=== PATIENT | female | born 1970 | race Caucasian/White ===

== ENCOUNTER 2022-11-07 22:27 | Inpatient (IN) | payer BC, SELFPAY ==
--- NOTE | ~2022-11-07 | XR_ITS ---
EXAMINATION: XR abdomen/kub 1V DATE: 11/09/2022 08:19 INDICATION: Small bowel obstruction. TECHNIQUE: A supine view of the abdomen was obtained. COMPARISON: CT abdomen and pelvis 11/07/2022 FINDINGS: There are dilated loops of small bowel. The colon is normal in caliber. There is a moderate volume of stool in the colon. There is an intrauterine device in expected position. IMPRESSION: 1. Persistently dilated small bowel, consistent with small bowel obstruction. Reviewed, dictated and finalized at location A.
--- NOTE | ~2022-11-07 | XR_ITS ---
EXAMINATION: XR_KUBGTUBINS_CR DATE: 11/08/2022 04:12 INDICATION: Nasogastric tube placement. TECHNIQUE: An upright view of the abdomen was obtained. COMPARISON: CT abdomen and pelvis 11/07/2022 FINDINGS: The lower abdomen is excluded. There are dilated loops of small bowel. The nasogastric tube tip is in the stomach. IMPRESSION: 1. Nasogastric tube tip in the stomach. 2. Dilated small bowel, consistent with small bowel obstruction. Reviewed, dictated and finalized at location A.
--- NOTE | ~2022-11-07 | XR_ITS ---
EXAMINATION: XR_KUBGTUBPOS_CR DATE: 11/08/2022 04:12 INDICATION: Nasogastric tube repositioning. TECHNIQUE: An upright view of the abdomen was obtained. COMPARISON: CT abdomen and pelvis 01/07/2023 FINDINGS: The lower abdomen is excluded. There are dilated loops of small bowel. The nasogastric tube tip is in the stomach. IMPRESSION: 1. Nasogastric tube tip in the stomach. 2. Dilated small bowel, consistent with small bowel obstruction. Reviewed, dictated and finalized at location A.
--- NOTE | ~2022-11-07 | CT_ITS ---
EXAMINATION: CT abdomen pelvis w con DATE: 11/08/2022 00:00 INDICATION: Acute cholecystitis. TECHNIQUE: Computed tomography (CT) of the abdomen and pelvis was performed with 100 mL Omnipaque 350 intravenous contrast. Automated exposure control and iterative reconstruction technique were employe d. The dose-length product was 317.60 mGy-cm. COMPARISON: None. FINDINGS: The visualized portions of the lung bases demonstrate mild atelectasis. No pleural effusion . The heart size is normal. No pericardial effusion. There is mild pectus excavatum. The liver, gallb ladder, spleen, pancreas, adrenal glands, and kidneys are normal. There are multiple dilated loops of small bowel. There are multiple transition points in right abdomen in close proximity, consistent wi th closed loop small bowel obstruction. The appendix is normal. There is an intrauterine device in ex pected position. There is a small volume of pelvic ascites. There is mild lumbar spondylosis. IMPRESSION: 1. Closed-loop small bowel obstruction. 2. Small volume of ascites. Reviewed, dictated and finalized at location A.
--- NOTE | ~2022-11-07 | XR_ITS ---
EXAMINATION: XR sm bowel follow through WS DATE: 11/08/2022 16:50 INDICATION: Small bowel obstruction with emesis and bloating TECHNIQUE: Lay Out Former radiograph(s) of the abdomen was/were obtained. Oral contrast was administered, and sequential radiographs of the abdomen were obtained through 3.5 hours. COMPARISON: CT abdomen and pelvis dated 11/07/2022 FINDINGS: Nasogastric tube tip in the body of the stomach on the shrinking machine operator image. T-shaped IUD projecting over the central pelvis with small amount of excreted contrast in the bladder related to the earlier contrast- enhanced CT. There is delayed gastric emptying with no contrast in the duodenum on the 1 hour image. There is only a small amount of contrast within the proximal most small bowel on the 3 1/2 hour image with the majority of contrast still within the stomach. Gas is seen within multiple loops of small b owel predominantly in the left abdomen which transiently appear only mildly dilated. IMPRESSION: 1. Significant delay progression of contrast which is reached only the proximal small bowel by 3 1/2 hours of imaging with transiently mildly dilated loops of more distal small bowel. This could be due to either partial small bowel obstruction and/or ileus. Reviewed, dictated and finalized at location A. IMPRESSION: 1. Significant delay progression of contrast which is reached only the proximal small bowel by 3 1/2 hours of imaging with transiently mildly dilated loops of more distal small bowel. This could be due to either partial small bowel obstr uction and/or ileus.
[2022-11-07 22:28] VITALS: BP 141/68; PULSE 65; RESP 14; TEMP 36.1; O2SAT 98
--- NOTE | 2022-11-07 23:08 | ED.ABDPAIN ---
HPI - Abdominal Pain General Chief Complaint: Abdominal Pain <VICENTE Valle Last Filed: 11/08/22 02:53> Stated Complaint: abd pain <VICENTE Valle Last Filed: 11/08/22 02:53> Time Seen by Provider: 11/07/22 22:43 <Raven Irwin PA-C - Last Filed: 11/08/22 02:53> History of Present Illness HPI narrative: 52-year-old female with a history of psoriatic arthritis reports for evaluation for left upper quadrant and right upper quadrant abdominal pain since 1500 today. She now states the abdominal pain is generalized and reports nausea and one episode of emesis upon arrival to the ED. States the pain is constant and describes it as an achy sensation, it radiates to her right flank. Last bowel movement this morning was normal. She denies chest pain or shortness of breath, fever, body aches or chills, melena or hematochezia, dysuria or hematuria, diarrhea. She does report a history of ureterolithiasis but states this does not feel the same. <VICENTE Valle Last Filed: 11/08/22 02:53> Related Data Home Medications: Home Medications Medication Instructions Recorded Confirmed cetirizine 10 mg tablet (Zyrtec) 10 mg PO DAILY 07/10/21 11/08/22 cholecalciferol (vitamin D3) 100 100 mcg PO DAILY 07/10/21 11/08/22 mcg (4,000 unit) tablet estradiol 1 mg tablet 0.5 mg PO DAILY 07/10/21 11/08/22 levonorgestrel 21 mcg/24 hours (8 1 device intrauterine ONCE 07/10/21 11/08/22 yrs) 52 mg intrauterine device (Mirena) multivitamin with minerals 1 tablet PO DAILY 07/10/21 11/08/22 <VICENTE Valle Last Filed: 11/08/22 02:53> Allergies/Adverse Reactions: Allergies Allergy/AdvReac Type Severity Reaction Status Date / Time doxycycline Allergy Intermediate Nausea and Verified 11/07/22 22:31 Vomiting SNR inhibitors Allergy Mild Nausea and Uncoded 11/07/22 22:31 Vomiting SSR inhibitors Allergy Mild Nausea and Uncoded 11/07/22 22:31 Vomiting <Raven Irwin PA-C - Last Filed: 11/08/22 02:53> Review of Systems Review of Systems: CONSTITUTIONAL: Denies fever, chills EYES: Denies visual changes, redness, or discharge. ENT: Denies rhinorrhea, congestion, sore throat, or otalgia. CARDIOVASCULAR: Denies chest pain, palpitations, or edema. RESPIRATORY: Denies cough or dyspnea. GASTROINTESTINAL: See HPI GENITOURINARY: Denies dysuria or hematuria. SKIN: Denies rash or itching. MUSCULOSKELETAL: See HPI NEUROLOGIC: Denies headache, numbness, dizziness, or weakness. PSYCHIATRIC: Denies anxiety or depression. <Raven Irwin PA-C - Last Filed: 11/08/22 02:53> [facility] Past Medical History Medical History: Medical History (Updated 11/08/22 @ 04:28 by Dereje Leal MD) Allergies Headache Hyperlipidemia Migraine Plantar fasciitis Psoriatic arthritis <Raven Irwin PA-C - Last Filed: 11/08/22 02:53> Surgical History Surgical History: Surgical History H/O cervical spinal arthrodesis Hx of tonsillectomy <Raven Irwin PA-C - Last Filed: 11/08/22 02:53> Family History Family History: Family History Father Cancer Hypertension Cerebrovascular accident Mother Diabetes mellitus Sibling Alcoholism Depression Anxiety Grandparent Cerebrovascular accident <Raven Irwin PA-C - Last Filed: 11/08/22 02:53> Social History Social History: Social History Years smoked: 15 Smoking status: Former smoker Tobacco type: cigarettes Alcohol intake: former Drinks per week: 2 Alcohol use details: 1-2 per month Substance use: never Lack of Transportation: No Lack of Food: Never True Current Housing: I Have Housing Concerned About Future Housing: No Difficulty Paying Gas/Electric Bills: No Difficulty Payi
[2022-11-07 23:36] LABS: Basophils Percent Auto 0.3 % (0.2-1.2); Eosinophils Absolute Auto 0.1 K/mm3 (0-0.3); Eosinophils Percent Auto 0.7 % (0-4.4); Hemoglobin 14.4 g/dL (12.0-15.0); Immature Granulocyte Absolute 0.02 K/mm3 (0.00-0.031); Immature Granulocyte Percent A 0.2 % (0-0.5); Lymphocytes Absolute Auto 1.49 K/mm3 (0.9-3.2); Lymphocytes Percent Auto 15.4 % (18.3-44.2); Mean Corpuscular HGB Conc 33.5 g/dl (32-36); Mean Corpuscular Volume 95.6 fl (80-100); Mean Platelet Volume 8.9 fl (7.4-10.4); Monocytes Absolute Auto 0.5 K/mm3 (0.1-0.6); Monocytes Percent Auto 5.6 % (2.6-8.5); Neutrophils Absolute Auto 7.5 K/mm3 (1.3-6.7); Neutrophils Percent Auto 77.8 % (45.5-73.1); Platelet Count Result 248 k/mm3 (150-375); Red Cell Distribution Width 11.7 % (11.5-14.5); White Blood Count 9.7 K/mm3 (4.5-10.0)
[2022-11-07] MEDS: MORPHINE SULFATE (*CRX) 4 MG/ML INJ IV PUSH (23:41)
[2022-11-07] MEDS: ONDANSETRON INJ 4 MG/2 ML VIAL IV PUSH (23:41)
[2022-11-07] MEDS: SODIUM CHLORIDE 0.9% IV 1,000 ML 999 ML IV CONT (23:42)
[2022-11-07 23:43] LABS: Appearance Urine Turbid (Clear); Bacteria Urine 4+ /hpf; Bilirubin Urine Negative (Negative); Blood Urine Negative (Negative); Color Urine Dark Yellow (Yellow); Glucose Urine UA Negative (Negative); Ketones Urine 3+ mg/dL (Negative); Leukocyte Esterase Ur Negative LEU/UL (Negative); Nitrate Urine Negative (Negative); Non Pathogenic Casts 0-2; Protein Urine Negative (Negative); RBC Urine 0-2 /hpf (0-2); Specific Grav Ur 1.028 (1.001-1.035); Squamous Epithelial Cell Urine Many /hpf (Few); Urobilinogen Urine 0.2 mg/dL (<2.0); WBC Urine 0-5 /hpf; pH Urine 5.5 (5.0-9.0)
[2022-11-07 23:48] LABS: Add Urine Microscopic? YES; Alanine Aminotransferase 23 U/L (6-35); Albumin Level 5.2 g/dL (3.5-5.1); Alkaline Phosphatase 33 U/L (38-126); Anion Gap 10 mmol/L (8-16); Aspartate Amino Transferase 38 U/L (14-36); Bilirubin,Total 0.5 mg/dL (0.2-1.3); Blood Urea Nitrogen 16 mg/dL (7-17); Carbon Dioxide 30 mmol/L (22-30); Chloride 96 mmol/L (98-107); Estimated CRCL calculation 72 ml/min; Estimated Glomerular Filt Rate > 60; Glucose 125 mg/dL (65-110); Lipase 45 U/L (23-300); Potassium 3.6 mmol/L (3.4-5.0); Sodium 136 mmol/L (137-145)
[2022-11-08 00:58] VITALS: BP 119/65; PULSE 74; RESP 19; O2SAT 91
[2022-11-08] MEDS: HYDROmorphone HCL INJ (*CRX) 1 MG/ML SYR 0.5 MG IV PUSH (01:07)
[2022-11-08] MEDS: SODIUM CHLORIDE 0.9% IV 1,000 ML 999 ML IV CONT (02:35)
[2022-11-08] MEDS: ONDANSETRON INJ 4 MG/2 ML VIAL IV PUSH ×3 (03:20→14:13)
[2022-11-08 03:22] VITALS: BP 108/57; PULSE 93; RESP 14; O2SAT 98
[2022-11-08] MEDS: HYDROmorphone HCL INJ (*CRX) 1 MG/ML SYR IV PUSH ×2 (03:29→08:53)
--- NOTE | 2022-11-08 04:24 | PM.IMHP ---
H&P: HPI History of Present Illness Date/Time: 11/08/22 04:24 Chief Complaint: Abdominal pain Narrative: This is a 52-year-old female with past medical history significant for allergies, dyslipidemia, migraine headaches, plantar fasciitis, psoriatic arthritis. Patient presents to the emergency room due to abdominal pain that started in the morning patient had a normal bowel movement and was able to to have Meals the day before has been in her usual state of health, patient has had nausea and vomiting tried [place] at home but with no relief, has been able to pass gas. Patient found to have small-bowel obstruction.. EXAMINATION: CT abdomen pelvis w con DATE: 11/08/2022 00:00 INDICATION: Acute cholecystitis. TECHNIQUE: Computed tomography (CT) of the abdomen and pelvis was performed with 100 mL Omnipaque 350 intravenous contrast. Automated exposure control and iterative reconstruction technique were employed. The dose-length product was 317.60 mGy-cm. COMPARISON: None. FINDINGS: The visualized portions of the lung bases demonstrate mild atelectasis. No pleural effusion. The heart size is normal. No pericardial effusion. There is mild pectus excavatum. The liver, gallbladder, spleen, pancreas, adrenal glands, and kidneys are normal. There are multiple dilated loops of small bowel. There are multiple transition points in right abdomen in close proximity, consistent with closed loop small bowel obstruction. The appendix is normal. There is an intrauterine device in expected position. There is a small volume of pelvic ascites. There is mild lumbar spondylosis. IMPRESSION: 1. Closed-loop small bowel obstruction. 2. Small volume of ascites. Review of Systems Review of Systems: Abdominal pain, nausea, vomiting Constitutional: Constitutional: Denies chills, Denies fatigue and Denies fever(s) Eyes: Eyes: Denies change in vision ENT: Denies dysphagia, Denies vertigo, Denies dizziness and Denies odynophagia Cardiovascular: Cardiovascular: Denies chest pain Respiratory: Respiratory: Denies cough, Denies excessive phlegm production and Denies dyspnea Gastrointestinal: Gastrointestinal: Reports abdominal pain, Denies melena, Denies hematochezia, Denies change in bowel habits, Denies coffee ground emesis, Denies dyspepsia, Denies heartburn, Denies diarrhea, Reports nausea and Denies hematemesis Genitourinary: Genitourinary: Denies dysuria Musculoskeletal: Musculoskeletal: Denies back pain Integumentary/Breasts: Skin/Breast: Denies rash Neurologic: Denies focal weakness and Denies Sensory deficit (Neuro) Psychiatric: Psychiatric: Reports no additional psychiatric complaints and Reports as per HPI Endocrine: Endocrine: Denies cold intolerance, Denies flushing, Denies heat intolerance, Denies polyphagia, Denies polydipsia and Denies palpitations Hematologic/Lymphatic: Hematologic/Lymphatic: Reports no additional hematologic/lymphatic complaints and Reports as per HPI Allergic/Immunologic: Allergic/Immunologic: Reports no additional allergic/immunologic complaints and Reports as per HPI PMFSH Past Medical History Medical History Allergies Headache Hyperlipidemia Migraine Plantar fasciitis Psoriatic arthritis Surgical History Surgical History H/O cervical spinal arthrodesis Hx of tonsillectomy Family History Family History Father Cancer Hypertension Cerebrovascular accident Mother Diabetes mellitus Sibling Alcoholism Depression Anxiety Grandparent Cerebrovascular accident Social History Social History Years smoked: 15 Smoking status: Former smoker Tobacco type: cigarettes Alcohol intake: former Drinks per week: 2 Alcohol use details: 1-2 per month Substance use: never L
[2022-11-08 05:04] VITALS: BP 102/55; PULSE 58; RESP 15; O2SAT 98
--- NOTE | 2022-11-08 05:22 | ADMGEN ---
This patient, Mely Jacobsen, was admitted to [facility] Surg Room 330-02. Patient/family oriented to hospital policies and general routines including ID bracelet, bed and alarms, visiting hours, pain management, procedures, bathroom and other care routines, personal items, smoking policy, room service/diet, and visiting hours. Information on how to activate the Rapid Response Team has been discussed. Patient/Family are encouraged to report perceived risks to care and to ask questions if they do not understand what they are told or what they should do.
[2022-11-08] MEDS: SODIUM CHLORIDE 0.9% IV 1,000 ML 125 ML IV CONT ×3 (05:37→22:37)
[2022-11-08 06:00] VITALS: BP 115/65; PULSE 61; RESP 18; TEMP 36.6; O2SAT 100
[2022-11-08 06:05] VITALS: BMI 25.0
--- NOTE | 2022-11-08 10:50 | PM.IMPN ---
Progress Note: A&P Assessment and Plan (1) SBO (small bowel obstruction): Code(s): K56.609 - Unspecified intestinal obstruction, unspecified as to partial versus complete obstruction Status: Acute Assessment and Plan: Admit to regular medical floor, NPO, NG to low intermittent suction, SBFT pending Surgery consult pending, supportive care (2) Psoriatic arthritis: Code(s): L40.50 - Arthropathic psoriasis, unspecified Status: Acute Assessment and Plan: In remission (3) Hormone replacement therapy (HRT): Code(s): Z79.890 - Hormone replacement therapy Status: Acute Assessment and Plan: Follow-up in the outpatient setting (4) Migraine: Code(s): G43.909 - Migraine, unspecified, not intractable, without status migrainosus Status: Acute Assessment and Plan: No headache currently Plan DVT prophylaxis with SCDs GI prophylaxis not indicated Code status full code Subjective Date/time seen: 11/08/22 10:50 Interval history: 52-year-old female with past medical history significant for allergies, dyslipidemia, migraine headaches, plantar fasciitis, psoriatic arthritis presenting with abdominal pain. No overnight events noted. No chest pain or shortness of breath. Very nauseated and uncomfortable, c/o intermittent abdominal pain. No fevers or chills. Review of Systems Review of Systems: 12 point review of systems was assessed and was negative except as noted in the HPI Exam Narrative: General: Alert and oriented per baseline, appears uncomfortable HEENT: Atraumatic, normocephalic, mucous membranes moist CV: Regular rate and rhythm, S1, S2 Lungs: Clear to auscultation bilaterally, no rales or crackles noted, no wheezes, good air entry Abdomen: Soft, ttp, non distended Extremities: Normal to inspection Skin: No rashes noted, no lesions or wounds seen Psych: Uncomfortable Objective Data Vital Signs Vital Signs: Vital Signs - 24 hr 11/07/22 22:28 11/08/22 00:58 11/08/22 03:22 Temperature 97.0 F L Pulse Rate 65 74 93 Respiratory Rate 14 19 14 Blood Pressure 141/68 H 119/65 108/57 L Pulse Oximetry 98 91 98 Oxygen Delivery Room Air 11/08/22 05:04 11/08/22 06:00 11/08/22 05:23 Temperature 97.8 F Pulse Rate 58 L 61 Respiratory Rate 15 18 Blood Pressure 102/55 L 115/65 Pulse Oximetry 98 100 Oxygen Delivery Room Air Intake/Output Intake/Output: Intake & Output 11/05/22 11/06/22 11/07/22 11/08/22 23:59 23:59 23:59 23:59 Intake Total 1000 Output Total 5 Balance 995 Meds/Results Medications: Active Medications Generic Name Dose Route Start Last Admin Trade Name Freq PRN Reason Stop Dose Admin Hydromorphone HCl 1 mg 11/08/22 02:52 11/08/22 08:53 Hydromorphone Hcl Inj (*Crx) 1 Mg/Ml Syr IV PUSH 1 mg Q4H PRN Administration Pain Rated 7-10 Sodium Chloride 1,000 mls @ 125 mls/hr 11/08/22 02:55 11/08/22 05:37 Normal Saline Iv IV CONT 125 mls/hr .Q8H NICOLE Administration Ondansetron HCl 4 mg 11/08/22 02:52 11/08/22 08:53 Ondansetron Inj 4 Mg/2 Ml Vial IV PUSH 4 mg Q4H PRN Administration Nausea Radiology Results: ITS Impressions Abdomen X-Ray 11/08/22 06:11 IMPRESSION: 1. Nasogastric tube tip in the stomach. 2. Dilated small bowel, consistent with small bowel obstruction. Abdomen/Pelvis CT 11/08/22 06:38 IMPRESSION: 1. Closed-loop small bowel obstruction. 2. Small volume of ascites. Labs Labs: Laboratory Results - last 24 hr 11/07/22 23:28 WBC 9.7 RBC 4.50 Hgb 14.4 Hct 43.0 MCV 95.6 MCH 32.0 MCHC 33.5 RDW 11.7 Plt Count 248 MPV 8.9 Immature Gran % (Auto) 0.2 Neut % (Auto) 77.8 H Lymph % (Auto) 15.4 L [place] % (Auto) 5.6 Eos % (Auto) 0.7 Baso % (Auto) 0.3 Lymph # (Auto) 1.49 [place] # (Auto) 0.5 Eos # (Auto) 0.1 Baso # (Auto) 0.0 Abs Immat Gran (auto) 0.02 A
--- NOTE | 2022-11-08 11:15 | PM.CNGS ---
Assessment and Plan Assessment and plan (1) SBO (small bowel obstruction): Code(s): K56.609 - Unspecified intestinal obstruction, unspecified as to partial versus complete obstruction Status: Acute Assessment and Plan: suggestion of closed loop on CT, reviewed c radiologist, exam largely benign, labs ok cont NG decompression and bowel rest, will get SBS for further evaluation History of Present Illness Consult details Consult date: 11/08/22 Reason for consult: abdominal pain Requesting physician: Dereje Leal MD Narrative: The patient is a 52-year-old female presenting to the emergency department complaining of upper abdominal pain, bloating, nausea and vomiting. The patient reports that the pain started Tuesday and has been progressively worsening. She describes the pain intermittent and cramping, most severe in the right upper quadrant. The patient also reports poor appetite since episode started. The patient reports normal bowel movement on Tuesday morning. The patient reports she has been passing flatus. The patient reports her only abdominal surgery was a previous . Review of Systems Review of Systems: All systems reviewed & are unremarkable except as noted in HPI and below PMFSH Past Medical History Medical History Allergies Headache Hyperlipidemia Migraine Plantar fasciitis Psoriatic arthritis Surgical History Surgical History H/O cervical spinal arthrodesis Hx of tonsillectomy Family History Family History Father Cancer Hypertension Cerebrovascular accident Mother Diabetes mellitus Sibling Alcoholism Depression Anxiety Grandparent Cerebrovascular accident Social History Social History Years smoked: 15 Smoking status: Former smoker Tobacco type: cigarettes Alcohol intake: former Drinks per week: 2 Alcohol use details: 1-2 per month Substance use: never Lack of Transportation: No Lack of Food: Never True Current Housing: I Have Housing Concerned About Future Housing: No Difficulty Paying Gas/Electric Bills: No Difficulty Paying for Meds: No Currently Unemployed: No Education: Bachelor's Degree Difficulty w/ Childcare or Family Care: No Living arrangements: with family Occupation/Education: occupation 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 Spiritual care concerns: No Agree to blood products: Yes Meds Home Medications and Allergies Home Medications Medication Instructions Recorded Confirmed Type cetirizine 10 mg tablet (Zyrtec) 10 mg PO DAILY 07/10/21 11/08/22 History cholecalciferol (vitamin D3) 100 100 mcg PO DAILY 07/10/21 11/08/22 History mcg (4,000 unit) tablet estradiol 1 mg tablet 0.5 mg PO DAILY 07/10/21 11/08/22 History levonorgestrel 21 mcg/24 hours (8 1 device intrauterine ONCE 07/10/21 11/08/22 History yrs) 52 mg intrauterine device (Mirena) multivitamin with minerals 1 tablet PO DAILY 07/10/21 11/08/22 History Allergies Allergy/AdvReac Type Severity Reaction Status Date / Time doxycycline Allergy Intermediate Nausea and Verified 11/07/22 22:31 Vomiting SNR inhibitors Allergy Mild Nausea and Uncoded 11/07/22 22:31 Vomiting SSR inhibitors Allergy Mild Nausea and Uncoded 11/07/22 22:31 Vomiting Vital Signs Vital Signs - 24 hr 11/07/22 22:28 11/08/22 00:58 11/08/22 03:22 Temperature 36.1 C L Pulse Rate 65 74 93 Respiratory Rate 14 19 14 Blood Pressure 141/68 H 119/65 108/57 L Pulse Oximetry 98 91 98 Oxygen Delivery Room Air 11/08/22 05:04 11/08/22 06:00 11/08/22 05:23 Temperature 36.6 C Pulse Rate 58 L 61 Respiratory Rate 15 18 Blood Pressure 102/55 L 115/65 Pulse Oximetry 98 100 Oxygen Delivery Room Air
[2022-11-08 14:40] VITALS: BP 131/69; PULSE 65; RESP 16; TEMP 36.4; O2SAT 100
[2022-11-08] MEDS: PROMETHAZINE HCL 25 MG/ML AMPUL 12.5 MG IV PUSH ×2 (16:13→20:57)
[2022-11-08 21:38] VITALS: BP 132/64; PULSE 76; RESP 14; TEMP 37.2; O2SAT 100
[2022-11-09] VITALS (13 sets, daily range): BP systolic 107–138; BP diastolic 46–82; PULSE 59–92; RESP 12–18; TEMP 36.2–36.9; O2SAT 95–100
[2022-11-09] MEDS: PROMETHAZINE HCL 25 MG/ML AMPUL 12.5 MG IV PUSH ×2 (02:54→09:41)
[2022-11-09 06:31] LABS: Basophils Percent Auto 0.1 % (0.2-1.2); Eosinophils Percent Auto 0.1 % (0-4.4); Hematocrit 39.6 % (37.0-47.0); Hemoglobin 13.1 g/dL (12.0-15.0); Immature Granulocyte Absolute 0.03 K/mm3 (0.00-0.031); Immature Granulocyte Percent A 0.4 % (0-0.5); Lymphocytes Absolute Auto 1.21 K/mm3 (0.9-3.2); Lymphocytes Percent Auto 14.2 % (18.3-44.2); Mean Corpuscular HGB Conc 33.1 g/dl (32-36); Mean Corpuscular Hemoglobin 31.9 pg (26-34); Mean Corpuscular Volume 96.4 fl (80-100); Mean Platelet Volume 8.7 fl (7.4-10.4); Monocytes Absolute Auto 0.7 K/mm3 (0.1-0.6); Monocytes Percent Auto 7.7 % (2.6-8.5); Neutrophils Absolute Auto 6.6 K/mm3 (1.3-6.7); Neutrophils Percent Auto 77.5 % (45.5-73.1); Platelet Count Result 216 k/mm3 (150-375); Red Blood Count 4.11 M/mm3 (4.2-5.4); Red Cell Distribution Width 11.8 % (11.5-14.5); White Blood Count 8.5 K/mm3 (4.5-10.0)
[2022-11-09 06:42] LABS: Alanine Aminotransferase 13 U/L (6-35); Albumin Level 3.4 g/dL (3.5-5.1); Alkaline Phosphatase 22 U/L (38-126); Anion Gap 4 mmol/L (8-16); Aspartate Amino Transferase 20 U/L (14-36); Bilirubin,Total 0.4 mg/dL (0.2-1.3); Blood Urea Nitrogen 13 mg/dL (7-17); Calcium 7.7 mg/dL (8.4-10.2); Carbon Dioxide 24 mmol/L (22-30); Chloride 105 mmol/L (98-107); Estimated CRCL calculation 72 ml/min; Estimated Glomerular Filt Rate > 60; Glucose 102 mg/dL (65-110); Potassium 3.7 mmol/L (3.4-5.0); Sodium 133 mmol/L (137-145)
--- NOTE | 2022-11-09 09:56 | PM.PNGS ---
Progress Note: A&P Assessment and Plan (1) SBO (small bowel obstruction): Code(s): K56.609 - Unspecified intestinal obstruction, unspecified as to partial versus complete obstruction Status: Acute Assessment and Plan: no improvement c conservative measures, SBS reviewed, will proceed to OR for ex lap Subjective Subjective Date/Time Seen: 11/09/22 09:56 Interval history: still c cramping pain and nausea, some minimal flatus, no bowel fxn Review of Systems Review of Systems: All systems reviewed & are unremarkable except as noted in HPI and below Exam Const: General: cooperative, no acute distress and uncomfortable Resp: Auscultation: clear to auscultation bilaterally Cardio: Rate: regular rate Rhythm: regular rhythm GI: Inspection: normal to inspection and distended GI Palp: Yes abdominal tenderness, Yes Soft to palpation, Yes Tenderness to palpation present (GI), No Guarding due to palpation present (GI) and No Rigid due to palpation Objective Data Vital Signs Vital Signs: Vital Signs - 24 hr 11/08/22 14:40 11/08/22 20:00 11/08/22 21:38 Temperature 36.4 C L 37.2 C Pulse Rate 65 76 Respiratory Rate 16 14 Blood Pressure 131/69 132/64 Pulse Oximetry 100 100 Oxygen Delivery Room Air 11/09/22 06:00 Temperature 36.2 C L Pulse Rate 77 Respiratory Rate 16 Blood Pressure 128/71 Pulse Oximetry 98 Oxygen Delivery Intake/Output Intake/Output: Intake & Output 11/06/22 11/07/22 11/08/22 11/09/22 23:59 23:59 23:59 23:59 Intake Total 3000 Output Total 605 Balance 2395 Meds/Results Medications: Active Medications Generic Name Dose Route Start Last Admin Trade Name Freq PRN Reason Stop Dose Admin Estradiol 0.5 mg 11/09/22 09:00 11/09/22 09:40 Estradiol 0.5 Mg Tablet PO Not Given DAILY NICOLE Fentanyl Citrate 25 mcg 11/08/22 15:52 Fentanyl Citrate Inj (*Crx) 100 Mcg/2 Ml Vial IV PUSH Q4H PRN Pain Rated 7-10 Sodium Chloride 1,000 mls @ 125 mls/hr 11/08/22 02:55 11/08/22 22:37 Normal Saline Iv IV CONT 125 mls/hr .Q8H NICOLE Administration Loratadine 10 mg 11/08/22 12:00 11/09/22 09:23 Loratadine 10 Mg Tablet PO Not Given DAILY [facility] Multivitamins/Calcium 1 tablet 11/09/22 09:00 11/09/22 09:23 Therapeutic Multivitamins/Minerals Tab (*Bkc) PO Not Given DAILY NICOLE Promethazine HCl 12.5 mg 11/08/22 15:52 11/09/22 09:41 Promethazine Hcl 25 Mg/Ml Ampul IV PUSH 12.5 mg Q4H PRN Administration Nausea And Vomiting Vitamin D 4,000 units 11/09/22 09:00 11/09/22 09:23 Cholecalciferol 1,000 Units Tablet PO Not Given DAILY [facility] Radiology Results: ITS Impressions Abdomen/Pelvis CT 11/08/22 06:38 IMPRESSION: 1. Closed-loop small bowel obstruction. 2. Small volume of ascites. ADDENDUM: 11/08/22 1116 I discussed the bowel obstruction with Dr. Paz. Small Bowel X-Ray 11/08/22 17:02 IMPRESSION: 1. Significant delay progression of contrast which is reached only the proximal small bowel by 3 1/2 hours of imaging with transiently mildly dilated loops of more distal small bowel. This could be due to either partial small bowel obstruction and/or ileus. Abdomen X-Ray 11/09/22 08:28 IMPRESSION: 1. Persistently dilated small bowel, consistent with small bowel obstruction. Labs Labs: Laboratory Results - last 24 hr 11/09/22 06:12 WBC 8.5 RBC 4.11 L Hgb 13.1 Hct 39.6 MCV 96.4 MCH 31.9 MCHC 33.1 RDW 11.8 Plt Count 216 MPV 8.7 Immature Gran % (Auto) 0.4 Neut % (Auto) 77.5 H Lymph % (Auto) 14.2 L [place] % (Auto) 7.7 Eos % (Auto) 0.1 Baso % (Auto) 0.1 L Lymph # (Auto) 1.21 [place] # (Auto) 0.7 H Eos # (Auto) 0.0 Baso # (Auto) 0.0 Abs Immat Gran (auto) 0.03 Absolute Neuts (auto) 6.6 Absolute Nucleated RBC 0.0 Nucleated RBC % 0.0 Sodium 133 L Potassium 3.7 Chloride 105 Carbon Dioxide 24 Anion Gap 4 L BUN 13 Creatinine
--- NOTE | 2022-11-09 09:57 | WPDHPUPDATE1 ---
History and Physical Update Update Date/Time: 11/09/22 09:57 History and Physical has been reviewed, including an updated exam of the patient. There are NO changes in the patient's condition. Risks, benefits, and alternatives have been discussed and questions answered. Patient agrees to proceed with procedure.
[2022-11-09] MEDS: SODIUM CHLORIDE 0.9% IV 1,000 ML 125 ML IV CONT (11:10)
--- NOTE | 2022-11-09 11:29 | PM.IMPN ---
Progress Note: A&P Assessment and Plan (1) SBO (small bowel obstruction): Code(s): K56.609 - Unspecified intestinal obstruction, unspecified as to partial versus complete obstruction Status: Acute Assessment and Plan: Admit to regular medical floor, NPO, NG to low intermittent suction, SBFT showed obstruction Surgery consult appreciated, OR 11/09 for exlap (2) Psoriatic arthritis: Code(s): L40.50 - Arthropathic psoriasis, unspecified Status: Acute Assessment and Plan: In remission (3) Hormone replacement therapy (HRT): Code(s): Z79.890 - Hormone replacement therapy Status: Acute Assessment and Plan: Follow-up in the outpatient setting (4) Migraine: Code(s): G43.909 - Migraine, unspecified, not intractable, without status migrainosus Status: Acute Assessment and Plan: No headache currently Plan DVT prophylaxis with SCDs GI prophylaxis not indicated Code status full code Subjective Date/time seen: 11/09/22 11:29 Interval history: 52-year-old female with past medical history significant for allergies, dyslipidemia, migraine headaches, plantar fasciitis, psoriatic arthritis presenting with abdominal pain. In OR Review of Systems Review of Systems: 12 point review of systems was assessed and was negative except as noted in the HPI Exam Narrative: In OR Objective Data Vital Signs Vital Signs: Vital Signs - 24 hr 11/08/22 14:40 11/08/22 20:00 11/08/22 21:38 Temperature 97.5 F L 98.9 F Pulse Rate 65 76 Respiratory Rate 16 14 Blood Pressure 131/69 132/64 Pulse Oximetry 100 100 Oxygen Delivery Room Air 11/09/22 06:00 11/09/22 08:00 Temperature 97.1 F L Pulse Rate 77 Respiratory Rate 16 Blood Pressure 128/71 Pulse Oximetry 98 Oxygen Delivery Room Air Intake/Output Intake/Output: Intake & Output 11/06/22 11/07/22 11/08/22 11/09/22 23:59 23:59 23:59 23:59 Intake Total 3000 1000 Output Total 605 Balance 2395 1000 Meds/Results Medications: Active Medications Generic Name Dose Route Start Last Admin Trade Name Freq PRN Reason Stop Dose Admin Estradiol 0.5 mg 11/09/22 09:00 11/09/22 09:40 Estradiol 0.5 Mg Tablet PO Not Given DAILY NICOLE Fentanyl Citrate 25 mcg 11/08/22 15:52 Fentanyl Citrate Inj (*Crx) 100 Mcg/2 Ml Vial IV PUSH Q4H PRN Pain Rated 7-10 Sodium Chloride 1,000 mls @ 125 mls/hr 11/08/22 02:55 11/09/22 11:10 Normal Saline Iv IV CONT 125 mls/hr .Q8H NICOLE Administration Loratadine 10 mg 11/08/22 12:00 11/09/22 09:23 Loratadine 10 Mg Tablet PO Not Given DAILY [facility] Multivitamins/Calcium 1 tablet 11/09/22 09:00 11/09/22 09:23 Therapeutic Multivitamins/Minerals Tab (*Bkc) PO Not Given DAILY [facility] Promethazine HCl 12.5 mg 11/08/22 15:52 11/09/22 09:41 Promethazine Hcl 25 Mg/Ml Ampul IV PUSH 12.5 mg Q4H PRN Administration Nausea And Vomiting Vitamin D 4,000 units 11/09/22 09:00 11/09/22 09:23 Cholecalciferol 1,000 Units Tablet PO Not Given DAILY [facility] Radiology Results: ITS Impressions Abdomen/Pelvis CT 11/08/22 06:38 IMPRESSION: 1. Closed-loop small bowel obstruction. 2. Small volume of ascites. ADDENDUM: 11/08/22 1116 I discussed the bowel obstruction with Dr. Paz. Small Bowel X-Ray 11/08/22 17:02 IMPRESSION: 1. Significant delay progression of contrast which is reached only the proximal small bowel by 3 1/2 hours of imaging with transiently mildly dilated loops of more distal small bowel. This could be due to either partial small bowel obstruction and/or ileus. Abdomen X-Ray 11/09/22 08:28 IMPRESSION: 1. Persistently dilated small bowel, consistent with small bowel obstruction. Labs Labs: Laboratory Results - last 24 hr 11/09/22 06:12 WBC 8.5 RBC 4.11 L Hgb 13.1 Hct 39.6 MCV 96.4 MCH 31.9 MCHC 3
--- NOTE | 2022-11-09 12:11 | PC.NURSE ---
Pt is off the unit, just went down for surgery.
[2022-11-09] MEDS: LACTATED RINGERS 1,000 ML 30 ML IV CONT ×2 (12:20→14:49)
--- NOTE | 2022-11-09 12:22 | WPDANESEPPF ---
Anes - Initial Pre Proc Eval Procedure: Operation Date: 11/09/22 15:00 Proposed Procedures p Exploratory Laparotomy, Possible Bowel Resection - Magda Paz MD Date/Time: 11/09/22 12:22 Surgeon: Dereje Leal MD Pre Op Diagnosis: SBO Patient Data Age: 52 Gender: F Height: 1.57 m Weight: 62.1 kg Last Vital Signs Temp 36.2 C L 11/09/22 06:00 Pulse 77 11/09/22 06:00 Resp 16 11/09/22 06:00 BP 128/71 11/09/22 06:00 Pulse Ox 98 11/09/22 06:00 O2 Del Method Room Air 11/09/22 08:00 Allergies Allergy/AdvReac Type Severity Reaction Status Date / Time doxycycline Allergy Intermediate Nausea and Verified 11/07/22 22:31 Vomiting SNR inhibitors Allergy Mild Nausea and Uncoded 11/07/22 22:31 Vomiting SSR inhibitors Allergy Mild Nausea and Uncoded 11/07/22 22:31 Vomiting Home Medications Medication Instructions Recorded Confirmed Type cetirizine 10 mg tablet (Zyrtec) 10 mg PO DAILY 07/10/21 11/08/22 History cholecalciferol (vitamin D3) 100 100 mcg PO DAILY 07/10/21 11/08/22 History mcg (4,000 unit) tablet estradiol 1 mg tablet 0.5 mg PO DAILY 07/10/21 11/08/22 History levonorgestrel 21 mcg/24 hours (8 1 device intrauterine ONCE 07/10/21 11/08/22 History yrs) 52 mg intrauterine device (Mirena) multivitamin with minerals 1 tablet PO DAILY 07/10/21 11/08/22 History Laboratory Tests 11/09/22 06:12 WBC 8.5 K/mm3 (4.5-10.0) RBC 4.11 L M/mm3 (4.2-5.4) Hgb 13.1 g/dL (12.0-15.0) Hct 39.6 % (37.0-47.0) MCV 96.4 fl (80-100) MCH 31.9 pg (26-34) MCHC 33.1 g/dl (32-36) RDW 11.8 % (11.5-14.5) Plt Count 216 k/mm3 (150-375) MPV 8.7 fl (7.4-10.4) Immature Gran % (Auto) 0.4 % (0-0.5) Neut % (Auto) 77.5 H % (45.5-73.1) Lymph % (Auto) 14.2 L % (18.3-44.2) Sandoval % (Auto) 7.7 % (2.6-8.5) Eos % (Auto) 0.1 % (0-4.4) Baso % (Auto) 0.1 L % (0.2-1.2) Lymph # (Auto) 1.21 K/mm3 (0.9-3.2) Sandoval # (Auto) 0.7 H K/mm3 (0.1-0.6) Eos # (Auto) 0.0 K/mm3 (0-0.3) Baso # (Auto) 0.0 K/mm3 (0.0-0.1) Abs Immat Gran (auto) 0.03 K/mm3 (0.00-0.031) Absolute Neuts (auto) 6.6 K/mm3 (1.3-6.7) Absolute Nucleated RBC 0.0 K/mm3 (0.0-0.012) Nucleated RBC % 0.0 % (0.0-0.2) Sodium 133 L mmol/L (137-145) Potassium 3.7 mmol/L (3.4-5.0) Chloride 105 mmol/L (98-107) Carbon Dioxide 24 mmol/L (22-30) Anion Gap 4 L mmol/L (8-16) BUN 13 mg/dL (7-17) Creatinine 0.60 L mg/dL (0.7-1.0) Estim Creat Clear Calc 72 ml/min Estimated GFR > 60 (59 - ) Glucose 102 mg/dL (65-110) Calcium 7.7 L mg/dL (8.4-10.2) Total Bilirubin 0.4 mg/dL (0.2-1.3) AST 20 U/L (14-36) ALT 13 U/L (6-35) Alkaline Phosphatase 22 L U/L (38-126) Total Protein 6.0 L g/dL (6.3-8.2) Albumin 3.4 L g/dL (3.5-5.1) Patient hx anesthesia problems: none Family hx anesthesia problems: none Results Review: All pre-operative results and documents have been reviewed as part of the pre-operative evaluation. [facility] Past Medical History Medical History Allergies Headache Hyperlipidemia Migraine Plantar fasciitis Psoriatic arthritis Surgical History Surgical History H/O cervical spinal arthrodesis Hx of tonsillectomy Family History Family History Father Cancer Hypertension Cerebrovascular accident Mother Diabetes mellitus Sibling Alcoholism Depression Anxiety Grandparent Cerebrovascular accident Social History Social History Years smoked: 15 Smoking status: Former smoker Tobacco type: cigarettes Alcohol intake: former Drinks per week: 2 Alcohol
[2022-11-09] MEDS: ceFAZolin 2 GM/D5W 50 ML 2 GM/50 ML BAG IVPB ×2 (13:40→21:32)
--- NOTE | 2022-11-09 14:46 | W.PM.PROC2 ---
Procedure Note - Detailed Date of Procedure 11/09/22 Pre-op Diagnosis SBO Post-op Diagnosis Same Procedure Performed Exploratory laparotomy, small-bowel resection Surgeon Magda Paz MD Anesthesia General Indications 52-year-old female presenting to the emergency department complaining severe abdominal pain. Workup was significant for small bowel obstruction. Findings Closed loop small bowel obstruction secondary to internal hernia with noted ischemia of herniated bowel Description of Procedure The patient was taken the operating room and placed in the supine position. After adequate induction of general anesthesia, the patient was prepped and draped in the normal sterile fashion. An upper midline incision was used to gain access into the abdominal cavity. Upon getting into the peritoneal cavity, a large amount of ascitic fluid was noted. Approximately 400-500 mL of serous fluid was evacuated from the abdomen. I then began to run the small intestine, this was noted to be dilated proximally while the distal bowel was noted to be decompressed. In the mid jejunum there was noted to be a loop of small intestine that had twisted around the mesentery causing a closed loop small bowel obstruction. This bowel was noted to be dilated, inflamed, and ischemic. I was able to reduce the hernia at this point. Of note there was really no adhesions noted. I then ran the bowel proximally all the way to the ligament of Treitz. Distally the small bowel was noted to be decompressed and normal. The area of the previously herniated bowel continued to be very dusky appearing. I then made the decision to resect this area. This was done with a ROSE MARY 75 stapler loads both distally and proximally to the area of ischemia. I then took down the mesenteric attachments using the LigaSure device. Then completed a [id number] functional end-to-end anastomosis using the ROSE MARY 75 stapler followed by a TX 60 stapler. The mesenteric defect was closed with a running 3-0 silk suture. The anastomosis was noted to be widely patent and tension-free. I then imbricated the staple line using interrupted 3-0 silk sutures. I then copiously irrigated the abdominal cavity. No other pathology was noted. I then closed the fascia of our incision using a looped 0 PDS suture. The subcutaneous tissue was closed with 3-0 Vicryl suture. The skin was closed with 4-0 Monocryl subcuticular suture. Dermabond was placed on the wound. The patient tolerated the procedure well and was extubated postoperatively. She will be transferred to the recovery room in stable condition. Estimated Blood Loss 20 Urine Output 600 Drains No Packing No Pathology Yes Complications No immediate complications Condition Stable Disposition PACU [facility] Billing Surgery - Charge Forward: Surgery Billing
[2022-11-09] MEDS: HYDROmorphone HCL INJ (*CRX) 1 MG/ML SYR 0.5 MG IV PUSH ×2 (15:33→15:45)
[2022-11-09] MEDS: fentaNYL CITRATE INJ (*CRX) 100 MCG/2 ML VIAL 25 MCG IV PUSH (16:44)
[2022-11-09] MEDS: HYDROmorphone HCL INJ (*CRX) 1 MG/ML SYR IV PUSH (22:09)
[2022-11-10] VITALS (8 sets, daily range): BP systolic 96–138; BP diastolic 47–74; PULSE 79–95; RESP 14–16; TEMP 36.1–37.4; O2SAT 95–99
[2022-11-10] MEDS: SODIUM CHLORIDE 0.9% IV 1,000 ML 125 ML IV CONT ×2 (01:29→09:11)
[2022-11-10] MEDS: HYDROmorphone HCL INJ (*CRX) 1 MG/ML SYR IV PUSH ×3 (05:45→21:50)
[2022-11-10] MEDS: ceFAZolin 2 GM/D5W 50 ML 2 GM/50 ML BAG IVPB ×2 (05:46→15:24)
[2022-11-10 06:53] LABS: Basophils Percent Auto 0.4 % (0.2-1.2); Hematocrit 37.2 % (37.0-47.0); Hemoglobin 12.3 g/dL (12.0-15.0); Immature Granulocyte Absolute 0.05 K/mm3 (0.00-0.031); Immature Granulocyte Percent A 0.7 % (0-0.5); Lymphocytes Absolute Auto 0.96 K/mm3 (0.9-3.2); Lymphocytes Percent Auto 13.7 % (18.3-44.2); Mean Corpuscular HGB Conc 33.1 g/dl (32-36); Mean Corpuscular Hemoglobin 32.6 pg (26-34); Mean Corpuscular Volume 98.7 fl (80-100); Mean Platelet Volume 8.7 fl (7.4-10.4); Monocytes Absolute Auto 0.7 K/mm3 (0.1-0.6); Monocytes Percent Auto 9.5 % (2.6-8.5); Neutrophils Absolute Auto 5.3 K/mm3 (1.3-6.7); Neutrophils Percent Auto 75.7 % (45.5-73.1); Platelet Count Result 182 k/mm3 (150-375); Red Blood Count 3.77 M/mm3 (4.2-5.4); Red Cell Distribution Width 12.1 % (11.5-14.5)
[2022-11-10 07:01] LABS: Alanine Aminotransferase 11 U/L (6-35); Albumin Level 3.2 g/dL (3.5-5.1); Alkaline Phosphatase 20 U/L (38-126); Anion Gap 8 mmol/L (8-16); Aspartate Amino Transferase 20 U/L (14-36); Bilirubin,Total 0.3 mg/dL (0.2-1.3); Blood Urea Nitrogen 12 mg/dL (7-17); Calcium 7.1 mg/dL (8.4-10.2); Carbon Dioxide 23 mmol/L (22-30); Chloride 106 mmol/L (98-107); Estimated CRCL calculation 72 ml/min; Estimated Glomerular Filt Rate > 60; Glucose 96 mg/dL (65-110); Potassium 3.6 mmol/L (3.4-5.0); Sodium 137 mmol/L (137-145)
--- NOTE | 2022-11-10 07:37 | PM.IMPN ---
Progress Note: A&P Assessment and Plan (1) SBO (small bowel obstruction): Code(s): K56.609 - Unspecified intestinal obstruction, unspecified as to partial versus complete obstruction Status: Acute Assessment and Plan: Admit to regular medical floor, NPO, NG to low intermittent suction, SBFT showed obstruction Surgery consult appreciated, OR 11/09 for exlap 16: POD#1 exlap for SBO, postop care per surgery team (2) Psoriatic arthritis: Code(s): L40.50 - Arthropathic psoriasis, unspecified Status: Acute Assessment and Plan: In remission (3) Hormone replacement therapy (HRT): Code(s): Z79.890 - Hormone replacement therapy Status: Acute Assessment and Plan: Follow-up in the outpatient setting (4) Migraine: Code(s): G43.909 - Migraine, unspecified, not intractable, without status migrainosus Status: Acute Assessment and Plan: No headache currently Plan DVT prophylaxis with SCDs GI prophylaxis not indicated Code status full code Subjective Date/time seen: 11/10/22 07:37 Interval history: 52-year-old female with past medical history significant for allergies, dyslipidemia, migraine headaches, plantar fasciitis, psoriatic arthritis presenting with abdominal pain. No overnight events noted. No chest pain or shortness of breath. No nausea, vomiting or diarrhea. No fevers or chills. Doing well postoperatively, feels much better. Review of Systems Review of Systems: 12 point review of systems was assessed and was negative except as noted in the HPI Exam Narrative: General: No acute distress, alert and oriented per baseline, ngt in place HEENT: Atraumatic, normocephalic, mucous membranes moist CV: Regular rate and rhythm, S1, S2 Lungs: Clear to auscultation bilaterally, no rales or crackles noted, no wheezes, good air entry Abdomen: Soft, nontender, nondistended Extremities: Normal to inspection Skin: No rashes noted, no lesions or wounds seen Psych: Euthymic, normal affect Objective Data Vital Signs Vital Signs: Vital Signs - 24 hr 11/09/22 08:00 11/09/22 12:18 11/09/22 14:49 Temperature 97.8 F 97.4 F L Pulse Rate 78 59 L Respiratory Rate 18 18 Blood Pressure 125/69 127/82 Pulse Oximetry 100 100 Oxygen Delivery Room Air Room Air Simple Face Mask Oxygen Flow Rate 8 11/09/22 15:00 11/09/22 15:15 11/09/22 15:30 Temperature Pulse Rate 70 61 64 Respiratory Rate 16 18 14 Blood Pressure 138/77 134/74 119/68 Pulse Oximetry 100 100 99 Oxygen Delivery Simple Face Mask Simple Face Mask Room Air Oxygen Flow Rate 8 8 11/09/22 15:45 11/09/22 16:00 11/09/22 16:20 Temperature 98.4 F Pulse Rate 65 68 75 Respiratory Rate 14 12 16 Blood Pressure 117/64 107/65 114/59 L Pulse Oximetry 98 97 95 Oxygen Delivery Room Air Room Air Oxygen Flow Rate 11/09/22 16:35 11/09/22 17:07 11/09/22 18:05 Temperature 98.2 F 98.2 F 98 F Pulse Rate 73 74 75 Respiratory Rate 16 16 16 Blood Pressure 108/46 L 110/52 L 110/48 L Pulse Oximetry 97 97 98 Oxygen Delivery Oxygen Flow Rate 11/09/22 20:00 11/09/22 21:53 11/10/22 01:34 Temperature 98.5 F Pulse Rate 92 Respiratory Rate 14 Blood Pressure 110/59 L 134/58 L Pulse Oximetry 98 Oxygen Delivery Room Air Oxygen Flow Rate 11/10/22 01:49 11/10/22 05:53 Temperature 97 F L 97.8 F Pulse Rate 79 89 Respiratory Rate 14 14 Blood Pressure 96/47 L 114/59 L Pulse Oximetry 97 95 Oxygen Delivery Oxygen Flow Rate Intake/Output Intake/Output: Intake & Output 11/07/22 11/08/22 11/09/22 11/10/22 23:59 23:59 23:59 23:59 Intake Total 3000 2640 Output Total 605 980 0 Balance 2395 1660 0 Meds/Results Medications: Active Medications Generic Name Dose Route Start Last Admin Trade Name Freq PRN Reason Stop Dose Admin Diphenhydramine HCl 25 mg 11/09/22 16:08 Diphenhydramine Hcl Inj 50 Mg/Ml
[2022-11-10] MEDS: ENOXAPARIN 40 MG/0.4 ML SYRINGE SUB-Q (08:50)
[2022-11-10] MEDS: HYDROmorphone HCL INJ (*CRX) 1 MG/ML SYR 0.5 MG IV PUSH (08:54)
--- NOTE | 2022-11-10 12:44 | PM.PNGS ---
Progress Note: A&P Assessment and Plan (1) SBO (small bowel obstruction): Code(s): K56.609 - Unspecified intestinal obstruction, unspecified as to partial versus complete obstruction Status: Acute Assessment and Plan: doing well, cont routine postop care, will clamp NG, OOB/IS Subjective Subjective Date/Time Seen: 11/10/22 12:44 Interval history: feels good, no further nausea, crampy pain Review of Systems Review of Systems: All systems reviewed & are unremarkable except as noted in HPI and below Exam Const: General: cooperative, comfortable and no acute distress Resp: Auscultation: clear to auscultation bilaterally Cardio: Rate: regular rate Rhythm: regular rhythm GI: Inspection: normal to inspection, distended and incision GI Palp: Yes abdominal tenderness and Yes Soft to palpation Objective Data Vital Signs Vital Signs: Vital Signs - 24 hr 11/09/22 14:49 11/09/22 15:00 11/09/22 15:15 Temperature 36.3 C L Pulse Rate 59 L 70 61 Respiratory Rate 18 16 18 Blood Pressure 127/82 138/77 134/74 Pulse Oximetry 100 100 100 Oxygen Delivery Simple Face Mask Simple Face Mask Simple Face Mask Oxygen Flow Rate 8 8 8 11/09/22 15:30 11/09/22 15:45 11/09/22 16:00 Temperature Pulse Rate 64 65 68 Respiratory Rate 14 14 12 Blood Pressure 119/68 117/64 107/65 Pulse Oximetry 99 98 97 Oxygen Delivery Room Air Room Air Room Air Oxygen Flow Rate 11/09/22 16:20 11/09/22 16:35 11/09/22 17:07 Temperature 36.9 C 36.8 C 36.8 C Pulse Rate 75 73 74 Respiratory Rate 16 16 16 Blood Pressure 114/59 L 108/46 L 110/52 L Pulse Oximetry 95 97 97 Oxygen Delivery Oxygen Flow Rate 11/09/22 18:05 11/09/22 20:00 11/09/22 21:53 Temperature 36.6 C 36.9 C Pulse Rate 75 92 Respiratory Rate 16 14 Blood Pressure 110/48 L 110/59 L Pulse Oximetry 98 98 Oxygen Delivery Room Air Oxygen Flow Rate 11/10/22 01:34 11/10/22 01:49 11/10/22 05:53 Temperature 36.1 C L 36.6 C Pulse Rate 79 89 Respiratory Rate 14 14 Blood Pressure 134/58 L 96/47 L 114/59 L Pulse Oximetry 97 95 Oxygen Delivery Oxygen Flow Rate 11/10/22 10:25 11/10/22 08:00 Temperature 36.7 C Pulse Rate 86 Respiratory Rate 16 Blood Pressure 110/56 L Pulse Oximetry 97 Oxygen Delivery Room Air Oxygen Flow Rate Intake/Output Intake/Output: Intake & Output 11/07/22 11/08/22 11/09/22 11/10/22 23:59 23:59 23:59 23:59 Intake Total 3000 2640 1000 Output Total 605 980 0 Balance 2395 1660 1000 Meds/Results Medications: Active Medications Generic Name Dose Route Start Last Admin Trade Name Freq PRN Reason Stop Dose Admin Diphenhydramine HCl 25 mg 11/09/22 16:08 Diphenhydramine Hcl Inj 50 Mg/Ml Vial IV PUSH Q6H PRN Itching Enoxaparin Sodium 40 mg 11/10/22 09:00 11/10/22 08:50 Enoxaparin 40 Mg/0.4 Ml Syringe SUB-Q 40 mg DAILY NICOLE Administration Estradiol 0.5 mg 11/09/22 09:00 11/10/22 08:50 Estradiol 0.5 Mg Tablet PO Not Given DAILY NICOLE Fentanyl Citrate 25 mcg 11/08/22 15:52 11/09/22 16:44 Fentanyl Citrate Inj (*Crx) 100 Mcg/2 Ml Vial IV PUSH 25 mcg Q4H PRN Administration Pain Rated 7-10 Hydromorphone HCl 1 mg 11/09/22 21:40 11/10/22 05:45 Hydromorphone Hcl Inj (*Crx) 1 Mg/Ml Syr IV PUSH 1 mg Q2H PRN Administration Pain Rated 7-10 Hydromorphone HCl 0.5 mg 11/09/22 21:40 11/10/22 08:54 Hydromorphone Hcl Inj (*Crx) 1 Mg/Ml Syr IV PUSH 0.5 mg Q2H PRN Administration Moderate Pain (4-6) Sodium Chloride 1,000 mls @ 125 mls/hr 11/08/22 02:55 11/10/22 09:11 Normal Saline Iv IV CONT 125 mls/hr .Q8H NICOLE Administration Cefazolin Sodium 2 gm in 50 mls @ 100 mls/hr 11/09/22 22:00 11/10/22 05:46 Ancef 2 Gm/D5w 50 Ml IVPB 11/10/22 14:29 100 mls/hr Q8H NICOLE Administration Loratadine 10 mg 11/08/22 12:00 11/10/22 08:51 Loratadine 10 Mg Tablet PO Not Given DAILY NICOLE Multi
[2022-11-11] VITALS: O2SAT 96
[2022-11-11] MEDS: HYDROmorphone HCL INJ (*CRX) 1 MG/ML SYR IV PUSH (03:32)
[2022-11-11 04:00] VITALS: BP 114/61; PULSE 99; RESP 18; TEMP 36.4; O2SAT 93
[2022-11-11 06:30] LABS: Basophils Percent Auto 0.1 % (0.2-1.2); Eosinophils Percent Auto 0.4 % (0-4.4); Hematocrit 33.3 % (37.0-47.0); Hemoglobin 11.1 g/dL (12.0-15.0); Immature Granulocyte Absolute 0.04 K/mm3 (0.00-0.031); Immature Granulocyte Percent A 0.5 % (0-0.5); Lymphocytes Absolute Auto 0.68 K/mm3 (0.9-3.2); Lymphocytes Percent Auto 8.3 % (18.3-44.2); Mean Corpuscular HGB Conc 33.3 g/dl (32-36); Mean Corpuscular Hemoglobin 32.1 pg (26-34); Mean Corpuscular Volume 96.2 fl (80-100); Mean Platelet Volume 8.5 fl (7.4-10.4); Monocytes Absolute Auto 0.6 K/mm3 (0.1-0.6); Monocytes Percent Auto 7.2 % (2.6-8.5); Neutrophils Absolute Auto 6.8 K/mm3 (1.3-6.7); Neutrophils Percent Auto 83.5 % (45.5-73.1); Platelet Count Result 178 k/mm3 (150-375); Red Blood Count 3.46 M/mm3 (4.2-5.4); Red Cell Distribution Width 11.8 % (11.5-14.5); White Blood Count 8.2 K/mm3 (4.5-10.0)
[2022-11-11 06:37] LABS: Alanine Aminotransferase 10 U/L (6-35); Albumin Level 2.9 g/dL (3.5-5.1); Alkaline Phosphatase 21 U/L (38-126); Anion Gap 4 mmol/L (8-16); Aspartate Amino Transferase 19 U/L (14-36); Bilirubin,Total 0.5 mg/dL (0.2-1.3); Blood Urea Nitrogen 7 mg/dL (7-17); Calcium 7.2 mg/dL (8.4-10.2); Carbon Dioxide 23 mmol/L (22-30); Chloride 103 mmol/L (98-107); Estimated CRCL calculation 85 ml/min; Estimated Glomerular Filt Rate > 60; Glucose 117 mg/dL (65-110); Potassium 3.1 mmol/L (3.4-5.0); Sodium 130 mmol/L (137-145)
[2022-11-11] MEDS: ENOXAPARIN 40 MG/0.4 ML SYRINGE SUB-Q (08:55)
[2022-11-11] MEDS: POTASSIUM CHLORIDE 20 MEQ ER TABLET 40 MEQ PO (08:55)
[2022-11-11] MEDS: CHOLECALCIFEROL 1,000 UNITS TABLET 4000 UNITS PO (08:56)
[2022-11-11] MEDS: HYDROmorphone HCL INJ (*CRX) 1 MG/ML SYR 0.5 MG IV PUSH (09:00)
[2022-11-11] MEDS: IBUPROFEN 600 MG TABLET PO (09:42)
--- NOTE | 2022-11-11 10:33 | PM.PNGS ---
Progress Note: A&P Assessment and Plan (1) SBO (small bowel obstruction): Code(s): K56.609 - Unspecified intestinal obstruction, unspecified as to partial versus complete obstruction Status: Acute Assessment and Plan: doing well, cont routine postop care, ADAT, home soon Subjective Subjective Date/Time Seen: 11/11/22 10:33 Interval history: feels good, +flatus, gary full liquids Review of Systems Review of Systems: All systems reviewed & are unremarkable except as noted in HPI and below Exam Const: General: cooperative, comfortable and no acute distress Resp: Auscultation: clear to auscultation bilaterally Cardio: Rate: regular rate Rhythm: regular rhythm GI: Inspection: normal to inspection, distended and incision GI Palp: Yes abdominal tenderness and Yes Soft to palpation Objective Data Vital Signs Vital Signs: Vital Signs - 24 hr 11/10/22 14:00 11/10/22 18:00 11/10/22 21:27 Temperature 37.0 C 37.3 C 37.4 C Pulse Rate 84 94 95 Respiratory Rate 16 16 16 Blood Pressure 116/60 129/66 138/74 Pulse Oximetry 99 97 97 Oxygen Delivery 11/10/22 20:00 11/10/22 23:58 11/11/22 04:00 Temperature 36.6 C 36.4 C Pulse Rate 89 99 Respiratory Rate 16 18 Blood Pressure 119/62 114/61 Pulse Oximetry 96 93 Oxygen Delivery Room Air 11/11/22 00:00 11/11/22 08:00 Temperature Pulse Rate Respiratory Rate Blood Pressure Pulse Oximetry 96 Oxygen Delivery Room Air Room Air Intake/Output Intake/Output: Intake & Output 11/08/22 11/09/22 11/10/22 11/11/22 23:59 23:59 23:59 23:59 Intake Total 3000 2640 1050 490 Output Total 605 980 750 Balance 2395 1660 300 490 Meds/Results Medications: Active Medications Generic Name Dose Route Start Last Admin Trade Name Freq PRN Reason Stop Dose Admin Diphenhydramine HCl 25 mg 11/09/22 16:08 Diphenhydramine Hcl Inj 50 Mg/Ml Vial IV PUSH Q6H PRN Itching Enoxaparin Sodium 40 mg 11/10/22 09:00 11/11/22 08:55 Enoxaparin 40 Mg/0.4 Ml Syringe SUB-Q 40 mg DAILY NICOLE Administration Estradiol 0.5 mg 11/09/22 09:00 11/11/22 08:56 Estradiol 0.5 Mg Tablet PO Not Given DAILY [facility] Fentanyl Citrate 25 mcg 11/08/22 15:52 11/09/22 16:44 Fentanyl Citrate Inj (*Crx) 100 Mcg/2 Ml Vial IV PUSH 25 mcg Q4H PRN Administration Pain Rated 7-10 Hydromorphone HCl 1 mg 11/09/22 21:40 11/11/22 03:32 Hydromorphone Hcl Inj (*Crx) 1 Mg/Ml Syr IV PUSH 1 mg Q2H PRN Administration Pain Rated 7-10 Hydromorphone HCl 0.5 mg 11/09/22 21:40 11/11/22 09:00 Hydromorphone Hcl Inj (*Crx) 1 Mg/Ml Syr IV PUSH 0.5 mg Q2H PRN Administration Moderate Pain (4-6) Ibuprofen 600 mg 11/11/22 09:25 11/11/22 09:42 Ibuprofen 600 Mg Tablet PO 600 mg Q6H PRN Administration Pain Rated 1-3 Loratadine 10 mg 11/08/22 12:00 11/10/22 08:51 Loratadine 10 Mg Tablet PO Not Given DAILY [facility] Multivitamins/Calcium 1 tablet 11/09/22 09:00 11/10/22 08:51 Therapeutic Multivitamins/Minerals Tab (*Bkc) PO Not Given DAILY [facility] Naloxone HCl 0.1 mg 11/09/22 16:08 Naloxone Hcl 0.4 Mg/Ml Vial IV PUSH Q2M PRN Opiate Reversal Ondansetron HCl 4 mg 11/09/22 16:08 Ondansetron Inj 4 Mg/2 Ml Vial IV PUSH Q4H PRN Nausea And Vomiting Promethazine HCl 12.5 mg 11/08/22 15:52 11/09/22 09:41 Promethazine Hcl 25 Mg/Ml Ampul IV PUSH 12.5 mg Q4H PRN Administration Nausea And Vomiting Vitamin D 4,000 units 11/09/22 09:00 11/11/22 08:56 Cholecalciferol 1,000 Units Tablet PO 4,000 units DAILY NICOEL Administration Radiology Results: ITS Impressions Abdomen/Pelvis CT 11/08/22 06:38 IMPRESSION: 1. Closed-loop small bowel obstruction. 2. Small volume of ascites. ADDENDUM: 11/08/22 1116 I discussed the bowel obstruction with Dr. Paz. Small Bowel X-Ray 11/08/22 17:02 IMPRESSION: 1. Significant delay progression
--- NOTE | 2022-11-11 11:08 | PM.IMPN ---
Progress Note: A&P Assessment and Plan (1) SBO (small bowel obstruction): Code(s): K56.609 - Unspecified intestinal obstruction, unspecified as to partial versus complete obstruction Status: Acute Assessment and Plan: Status post exlap for SBO, postop care per surgery team Advanced diet as tolerated DC home if she tolerates diet and has had a bowel movement (2) Psoriatic arthritis: Code(s): L40.50 - Arthropathic psoriasis, unspecified Status: Acute Assessment and Plan: In remission (3) Hormone replacement therapy (HRT): Code(s): Z79.890 - Hormone replacement therapy Status: Acute Assessment and Plan: Follow-up in the outpatient setting (4) Migraine: Code(s): G43.909 - Migraine, unspecified, not intractable, without status migrainosus Status: Acute Assessment and Plan: No headache currently Subjective Date/time seen: 11/11/22 11:08 Interval history: Minimal abdominal pain. Passing gas. No bowel movements yet Review of Systems Review of Systems: All systems reviewed & are unremarkable except as noted in HPI and below Exam Narrative: General: No acute distress, alert and oriented per baseline, ngt in place HEENT: Atraumatic, normocephalic, mucous membranes moist CV: Regular rate and rhythm, S1, S2 Lungs: Clear to auscultation bilaterally, no rales or crackles noted, no wheezes, good air entry Abdomen: Soft, nontender, nondistended Extremities: Normal to inspection Skin: No rashes noted, no lesions or wounds seen Psych: Euthymic, normal affect Objective Data Vital Signs Vital Signs: Vital Signs - 24 hr 11/10/22 14:00 11/10/22 18:00 11/10/22 21:27 Temperature 98.6 F 99.1 F 99.4 F Pulse Rate 84 94 95 Respiratory Rate 16 16 16 Blood Pressure 116/60 129/66 138/74 Pulse Oximetry 99 97 97 Oxygen Delivery 11/10/22 20:00 11/10/22 23:58 11/11/22 04:00 Temperature 97.8 F 97.6 F Pulse Rate 89 99 Respiratory Rate 16 18 Blood Pressure 119/62 114/61 Pulse Oximetry 96 93 Oxygen Delivery Room Air 11/11/22 00:00 11/11/22 08:00 Temperature Pulse Rate Respiratory Rate Blood Pressure Pulse Oximetry 96 Oxygen Delivery Room Air Room Air Intake/Output Intake/Output: Intake & Output 11/08/22 11/09/22 11/10/22 11/11/22 23:59 23:59 23:59 23:59 Intake Total 3000 / 3000 2640 / 2640 1050 / 1050 490 / 490 Output Total 605 / 605 980 / 480.0 750 / 750 Balance 2395 / 2395 1660 / 2160.0 300 / 300 490 / 490 Meds/Results Medications: Active Medications Generic Name Dose Route Start Last Admin Trade Name Freq PRN Reason Stop Dose Admin Diphenhydramine HCl 25 mg 11/09/22 16:08 Diphenhydramine Hcl Inj 50 Mg/Ml Vial IV PUSH Q6H PRN Itching Enoxaparin Sodium 40 mg 11/10/22 09:00 11/11/22 08:55 Enoxaparin 40 Mg/0.4 Ml Syringe SUB-Q 40 mg DAILY NICOLE Administration Estradiol 0.5 mg 11/09/22 09:00 11/11/22 08:56 Estradiol 0.5 Mg Tablet PO Not Given DAILY [facility] Fentanyl Citrate 25 mcg 11/08/22 15:52 11/09/22 16:44 Fentanyl Citrate Inj (*Crx) 100 Mcg/2 Ml Vial IV PUSH 25 mcg Q4H PRN Administration Pain Rated 7-10 Hydromorphone HCl 1 mg 11/09/22 21:40 11/11/22 03:32 Hydromorphone Hcl Inj (*Crx) 1 Mg/Ml Syr IV PUSH 1 mg Q2H PRN Administration Pain Rated 7-10 Hydromorphone HCl 0.5 mg 11/09/22 21:40 11/11/22 09:00 Hydromorphone Hcl Inj (*Crx) 1 Mg/Ml Syr IV PUSH 0.5 mg Q2H PRN Administration Moderate Pain (4-6) Ibuprofen 600 mg 11/11/22 09:25 11/11/22 09:42 Ibuprofen 600 Mg Tablet PO 600 mg Q6H PRN Administration Pain Rated 1-3 Loratadine 10 mg 11/08/22 12:00 11/10/22 08:51 Loratadine 10 Mg Tablet PO Not Given DAILY [facility] Multivitamins/Calcium 1 tablet 11/09/22 09:00 11/10/22 08:51 Therapeutic Multivitamins/Minerals Tab (*Bkc) PO Not Given DAILY NIOCLE Naloxone HCl
[2022-11-11 14:45] VITALS: BP 110/58; PULSE 83; RESP 16; TEMP 37.3; O2SAT 97
--- NOTE | 2022-11-11 15:23 | PM.DS ---
DS: Admitting Diagnosis Discharge Date 11/11/22 Admitting Diagnosis SBO DS: Discharge Diagnosis Discharge Diagnosis (1) SBO (small bowel obstruction): Code(s): K56.609 - Unspecified intestinal obstruction, unspecified as to partial versus complete obstruction Status: Acute DS: Summary Hospital Course Hospital Course: Patient admitted with SBO. gen. surgery consulted. patient underwent exploratory laparotomy. doing well post op. tolerating regular diet. had a BM. ok to DC HOME Time Spent with Patient Time attestation: Total time spent providing and/or coordinating discharge services: DS: Data Data Completed and Pending Completed studies during hospitalization: Pending at discharge 11/09/22 14:01 Surgical [PTH] Routine Labs on day of discharge: Labs from last 24 hours 11/11/22 06:18 WBC 8.2 RBC 3.46 L Hgb 11.1 L Hct 33.3 L MCV 96.2 MCH 32.1 MCHC 33.3 RDW 11.8 Plt Count 178 MPV 8.5 Immature Gran % (Auto) 0.5 Neut % (Auto) 83.5 H Lymph % (Auto) 8.3 L Victoria % (Auto) 7.2 Eos % (Auto) 0.4 Baso % (Auto) 0.1 L Lymph # (Auto) 0.68 L Victoria # (Auto) 0.6 Eos # (Auto) 0.0 Baso # (Auto) 0.0 Abs Immat Gran (auto) 0.04 H Absolute Neuts (auto) 6.8 H Absolute Nucleated RBC 0.0 Nucleated RBC % 0.0 Sodium 130 L Potassium 3.1 L Chloride 103 Carbon Dioxide 23 Anion Gap 4 L BUN 7 D Creatinine 0.50 L Estim Creat Clear Calc 85 Estimated GFR > 60 Glucose 117 H Calcium 7.2 L Total Bilirubin 0.5 AST 19 ALT 10 Alkaline Phosphatase 21 L Total Protein 5.0 L Albumin 2.9 L Discharge Plan Discharge Consulting providers: Lorena Leonard; Raven Irwin; Magda Paz Discharging Clinician: William Zimmerman Anticipated Discharge Date/Time: 11/11/22 15:22 Patient Disposition: Home, Self-Care Activity: may shower Diet: as tolerated Wound Care Instructions: incision open to air Patient Instructions: Antibiotic Form, Bowel Obstruction (DC), Bowel Resection (DC) Stand Alone Forms: General Discharge Information Follow-up/Referrals: Magda Paz MD [Physician] - 2 Weeks PHYSICIAN NOT ON STAFF,NONSTAFF [Primary Care Provider] - Discharge Medications: New oxycodone-acetaminophen [Percocet] 5-325 mg tablet 1 tablet PO Q6H PRN (Reason: pain) Qty: 20 0RF docusate sodium [Colace] 100 mg capsule 100 mg PO BID Qty: 20 0RF No Action multivitamin with minerals Tablet 1 tablet PO DAILY cholecalciferol (vitamin D3) 100 mcg (4,000 unit) tablet 100 mcg PO DAILY estradiol 1 mg tablet 0.5 mg PO DAILY Mirena 20 mcg/24 hours (7 yrs) 52 mg intrauterine device 1 device intrauterine ONCE Rx Instructions: as a single dose cetirizine [Zyrtec] 10 mg tablet 10 mg PO DAILY Date of admission: 11/08/22 07:24 Primary Care Provider: PHYSICIAN NOT ON STAFF,NONSTAFF Admitting Provider: Dereje Leal V. Attending physician on admission: William Zimmerman Condition: Stable
== END 2022-11-11 16:45 | disposition home or self-care (01) | DRG 331 ==
LOC: ANHED 11-08 02:51 → ANH3MEDSUR 11-08 04:55
PROVIDERS: Student in an Organized Health Care Education/Training Program; Surgery; Admitting Provider Internal Medicine; Emergency Provider Physician Assistant; Visit Provider Hospitalist
PROC: 0DB80ZZ Excision of Small Intestine, Open Approach (ICD-10-PCS; CPT 49000; principal; 2022-11-09 15:00)
DX: K45.0 Other specified abdominal hernia with obstruction, without gangrene (principal); L40.50 Arthropathic psoriasis, unspecified; G43.909 Migraine, unspecified, not intractable, without status migrainosus; E78.5 Hyperlipidemia, unspecified; M72.2 Plantar fascial fibromatosis; Z98.1 Arthrodesis status; Z87.891 Personal history of nicotine dependence; Z79.890 Hormone replacement therapy
CPT/HCPCS: 36415; 74018; 74177; 74250; 80053; 81001; 81025; 83690; 85025; 88307; 96361; 96374; 96375; 99285; A9270; G0378; J0690; J1100; J1170; J1650; J2250; J2270; J2405; J2550; J2704; J2710; J3010; J7030; J7120; Q9967

== ENCOUNTER 2023-02-09 01:23 | Day surgery (SDC) | payer BC, SELFPAY ==
[2023-02-07 11:24] VITALS: BMI 23.0
--- NOTE | 2023-02-07 11:31 | PC.NURSE ---
Report to the Outpatient Waiting Room, entrance under the green pavilion located off [facility], at time 11:30 on date 02/09/23. Planned Procedure Time: 1:30. Time changes happen often and if your time is changed the preop area will call you the afternoon before. - You and your visitor will be asked to self-screen and do not enter if you have any COVID symptoms. - A mask is optional within the hospital at this time. Patients may have clear liquids (water, carbonated beverages, clear teas, apple juice) until 3 hours prior to surgery (10:30) with a maximum of 20 ounces. - No food from midnight until time of surgery Take the following medications with a SIP of water the morning of surgery: NONE DO NOT STOP ANY OF YOUR OTHER PRESCRIPTION MEDICATIONS PRIOR TO SURGERY ?EXCEPT THE FOLLOWING Medications to discontinue per physician: VITAMINS/SUPPLEMENTS Date to take last dose: PT HAS ALREADY STOPPED Please no make-up, nail belarusian, hairspray, perfume, deodorant, or body powder the day of surgery. No jewelry (including any body piercings) or valuables the day of surgery, leave them at home. Please take a shower or bath the night before, or the morning of, surgery with an antibacterial soap. Wear comfortable, loose fitting clothing. - Jewelry must be removed prior to entering the operating room. Rings and piercings that are not removed may be cut off. - The hospital will not accept responsibility for valuables. - Please leave all valuables, including medications, at home the day of surgery. If you are going home after surgery, a licensed pick up and delivery driver must drive you home. - NO public transportation without another adult if you receive anesthesia. - We recommend that an adult stay with you for 24 hours following discharge. - We also recommend that you do not drive, make important decision, drink alcoholic beverages, or take any drugs that were not prescribed by your health care provider for at least 24 hours after your discharge time. Follow any additional instructions given to you from your surgeon. If you or anyone in your household have experienced Covid symptoms in the past week, please notify your surgeon or the nurse liaison at the phone number below for possible testing. Telephone instructions given to PT - ANNALISA CAMPOVERDE and asked if any additional questions and then verbalized understanding. Patient advised to call surgeon office or pre surgery nurse liaison [phone] if any additional questions.
[2023-02-09] VITALS (9 sets, daily range): BP systolic 101–126; BP diastolic 56–67; PULSE 55–83; RESP 12–20; TEMP 36.4–36.6; O2SAT 97–100; BMI 23.1
--- NOTE | 2023-02-09 11:51 | ECG_ITS ---
Measurements Intervals [place] Rate: 51 P: 47 TX: 130 QRS: 50 QRSD: 98 T: 47 QT: 424 QTc: 394 Interpretive Statements SINUS BRADYCARDIA INCOMPLETE RIGHT BUNDLE BRANCH BLOCK BASELINE ARTIFACT- V1 BORDERLINE ECG NO PREVIOUS ECG AVAILABLE FOR COMPARISON Electronically Signed On 02-09-2023 12:00:29 [employer] by Herbert Wilcox D.O.
--- NOTE | 2023-02-09 11:59 | WPDHPUPDATE1 ---
History and Physical Update Update Date/Time: 02/09/23 11:59 History and Physical has been reviewed, including an updated exam of the patient. There are NO changes in the patient's condition. Risks, benefits, and alternatives have been discussed and questions answered. Patient agrees to proceed with procedure.
[2023-02-09] MEDS: LACTATED RINGERS 1,000 ML 30 ML IV CONT ×2 (12:25→14:55)
[2023-02-09] MEDS: ACETAMINOPHEN 500 MG TABLET 1000 MG PO (12:38)
[2023-02-09] MEDS: KETOROLAC 15 MG/ML VIAL (*BKC) IV PUSH (12:38)
[2023-02-09 12:42] LABS: Alanine Aminotransferase 17 U/L (6-35); Albumin Level 5.1 g/dL (3.5-5.1); Alkaline Phosphatase 34 U/L (38-126); Amylase 59 U/L (30-110); Aspartate Amino Transferase 23 U/L (14-36); Bilirubin,Total 0.6 mg/dL (0.2-1.3); Lipase 51 U/L (23-300)
--- NOTE | 2023-02-09 12:54 | WPDANESEPPF ---
Anes - Initial Pre Proc Eval Procedure: Operation Date: 02/09/23 13:30 Proposed Procedures p Laparoscopic Cholecystectomy - Magda Paz MD Date/Time: 02/09/23 12:54 Surgeon: Magda Paz MD Pre Op Diagnosis: Chr Cholecystitis Patient Data Age: 52 Gender: F Height: 1.6 m Weight: 59.1 kg Last Vital Signs Temp 36.6 C 02/09/23 11:20 Pulse 55 L 02/09/23 11:20 Resp 16 02/09/23 11:20 BP 121/56 L 02/09/23 11:20 Pulse Ox 100 02/09/23 11:20 O2 Del Method Room Air 02/09/23 11:20 Allergies Allergy/AdvReac Type Severity Reaction Status Date / Time hydrocodone [From [place]] AdvReac Severe Nausea and Verified 02/09/23 12:47 Vomiting doxycycline AdvReac Intermediate Nausea and Verified 02/09/23 12:47 Vomiting SNR inhibitors AdvReac Mild Nausea and Uncoded 02/07/23 11:22 Vomiting SSR inhibitors AdvReac Mild Nausea and Uncoded 02/07/23 11:22 Vomiting Home Medications Medication Instructions Recorded Confirmed Type cetirizine 10 mg tablet (Zyrtec) 10 mg PO DAILY 07/10/21 02/07/23 History levonorgestrel 21 mcg/24 hours (8 1 device intrauterine ONCE 07/10/21 02/07/23 History yrs) 52 mg intrauterine device (Mirena) multivitamin with minerals 1 tablet PO DAILY 07/10/21 02/07/23 History cholecalciferol (vitamin D3) 25 25 mcg PO DAILY 11/11/22 02/07/23 Rx mcg (1,000 unit) tablet (Vitamin D3) estradiol 0.5 mg tablet 0.5 mg PO DAILY 11/11/22 02/07/23 Rx ascorbate calcium (vitamin C) 500 500 mg PO DAILY 01/10/23 02/07/23 History mg tablet omega 8-mtt-ihd-fish oil 300 1 cap PO DAILY 01/10/23 02/07/23 History mg-1,000 mg capsule (Fish Oil) Laboratory Tests 02/09/23 12:28 Total Bilirubin 0.6 mg/dL (0.2-1.3) Direct Bilirubin 0.0 mg/dL (0-0.3) AST 23 U/L (14-36) ALT 17 U/L (6-35) Alkaline Phosphatase 34 L U/L (38-126) Total Protein 8.0 g/dL (6.3-8.2) Albumin 5.1 g/dL (3.5-5.1) Amylase 59 U/L (30-110) Lipase 51 U/L (23-300) Patient hx anesthesia problems: none Family hx anesthesia problems: none Results Review: All pre-operative results and documents have been reviewed as part of the pre-operative evaluation. [facility] Past Medical History Medical History Allergies Headache Hyperlipidemia Kidney stones Migraine Plantar fasciitis Psoriatic arthritis Surgical History Surgical History H/O cervical spinal arthrodesis History of exploratory laparotomy Exploratory laparotomy, small-bowel resection on 11/09/22 PDC Hx of tonsillectomy Family History Family History Father Cancer Hypertension Cerebrovascular accident Mother Diabetes mellitus Sibling Alcoholism Depression Anxiety Grandparent Cerebrovascular accident Social History Social History Smoking packs per day: 0.75 Smoking cigarettes per day: 15.0 Years smoked: 10 Smoking pack-years: 7.50 Smoking status: Former smoker Tobacco type: cigarettes Smoking end date: 03/28/97 Alcohol intake: current Drinks per week: 2 Alcohol use details: 1-2/MONTH Substance use: never Substance use type: does not use Lack of Transportation: No Lack of Food: Never True Current Housing: I Have Housing Concerned About Future Housing: No Difficulty Paying Gas/Electric Bills: No Difficulty Paying for Meds: No Currently Unemployed: No Education: Bachelor's Degree Difficulty w/ Childcare or Family Care: No Living arrangements: with family Occupation/Education: occupation 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
[2023-02-09] MEDS: ceFAZolin 2 GM/D5W 50 ML 2 GM/50 ML BAG IVPB (13:33)
[2023-02-09] MEDS: BUPIVACAINE/EPINEPHRINE 0.5% 50 ML VIAL 30 ML INFILTRATE (13:58)
--- NOTE | 2023-02-09 14:16 | W.PM.PROC2 ---
Procedure Note - Detailed Date of Procedure 02/09/23 Pre-op Diagnosis Chronic Cholecystitis Post-op Diagnosis Same Procedure Performed Laparoscopic cholecystectomy Surgeon Magda Paz MD Anesthesia General Indications 52-year-old female presented to the office complaining of postprandial right upper quadrant abdominal pain associated with nausea and vomiting. Workup including imaging significant for chronic cholecystitis. Findings chronic cholecystitis Description of Procedure The patient was taken to the operating room placed in the supine position. After adequate induction of general anesthesia, the patient was prepped and draped in normal sterile fashion. A time-out was then performed to verify the patient's identity as well as the procedure being performed. I then made a 5 mm incision in the infraumbilical region. Through this, a Veress needle was placed into the peritoneal cavity and CO2 gas was then insufflated. After adequate pneumoperitoneum was achieved, the Veress needle was removed and a 5 mm optiview trocar was placed through this incision under direct visualization. I then placed the laparoscope through this trocar site and under direct visualization placed a further 12 mm subxiphoid port as well as 2 additional 5 mm ports in the right upper abdomen. The gallbladder was then identified and was noted to be moderately inflamed and distended. I was able to place a grasper at the dome of the gallbladder and this was retracted anterior and cephalad up over the liver. A 2nd retractor was then placed at the infundibulum and retracted laterally, this allowed visualization of the triangle of Calot. I then was able to visualize the cystic duct in its entirety from its proximal insertion into the gallbladder, to its distal junction with the common hepatic/common bile duct junction. At this point, I carefully skeletonized the proximal cystic duct with the [place] dissector. I then clipped and transected the proximal cystic duct. Next I visualized the cystic artery. Again the artery was skeletonized, clipped, and transected. I then used the Bovie cautery to take down the peritoneal attachments of the gallbladder off the liver bed. Once the gallbladder specimen was completely detached, an endo-pouch was placed through the 12 mm port site. I then placed the gallbladder specimen into the Endo pouch and removed the endo-pouch from the 12 mm port site. The specimen will now be sent to pathology for further review. I then copiously irrigated the right upper quadrant. Some mild oozing was noted in the liver bed and this was controlled with the bovie cautery. Hemostasis was noted in the liver bed, the clips were noted to be in good position on both the cystic duct stump and the cystic artery stump. No other pathology was noted in the right upper quadrant. I then moved the laparoscope to the subxiphoid port. No iatrogenic injury or other pathology was noted in the lower abdomen. I then closed the 12 mm trocar site under direct visualization using the Faraz cone and 0 Vicryl suture. At this point, the abdomen was desufflated and all ports removed. All port sites were then closed with 4.O Monocryl subcuticular sutures. Dermabond was placed on each incision. The patient tolerated the procedure well, was extubated in the operating room postoperative and will be transferred to the recovery room in stable condition Estimated Blood Loss 5 Drains No Packing No Pathology Yes Complications No immediate complications Condition Stable Disposition PACU [facility] Billing Surgery - Charge Forward: Surgery Billing
[2023-02-09] MEDS: fentaNYL CITRATE INJ (*CRX) 100 MCG/2 ML VIAL 25 MCG IV PUSH ×4 (14:47→15:08)
== END 2023-02-09 16:20 | disposition home or self-care (01) ==
PROVIDERS: Visit Provider Surgery
PROC: 0FT44ZZ Resection of Gallbladder, Percutaneous Endoscopic Approach (ICD-10-PCS; CPT 47562; principal; 2023-02-09 13:30)
DX: K80.10 Calculus of gallbladder with chronic cholecystitis without obstruction (principal); E78.5 Hyperlipidemia, unspecified; L40.50 Arthropathic psoriasis, unspecified; Z87.891 Personal history of nicotine dependence
CPT/HCPCS: 47562; 36415; 80076; 82150; 83690; 86850; 86900; 86901; 88304; 93005; A9270; J0690; J1100; J1170; J1885; J2250; J2405; J2704; J3010; J7030; J7120

== ENCOUNTER 2024-01-10 08:14 | Emergency (ER) | payer OTHER, SELFPAY ==
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
--- NOTE | ~2024-01-10 | XR_ITS ---
Right Shoulder Technique: AP and scapular Y views were obtained. Clinical History: Pain Findings: No fracture or dislocation is seen. Osseous alignment is anatomic. The glenohumeral and acr omioclavicular joint spaces are preserved. Soft tissues are unremarkable. Impression: Unremarkable right shoulder radiographs. Reviewed, dictated and finalized at [facility]. Impression: Unremarkable right shoulder radiographs.
--- NOTE | ~2024-01-10 | CT_ITS ---
Noncontrast CT scan of the cervical spine Technique: Multiple contiguous axial [address] images of the cervical spine were obtained and rec onstructed in 2D sagittal and coronal planes on the acquisition scanner. Dose reduction technique was used on this scan by utilizing automated exposure control, adjustment of the mA and/or kV according to patient size. The dose-length product (DLP) was 186.47 mGy-cm. Clinical History: Pain Findings: No fractures or dislocations. There is mild reversal of the normal cervical lordosis. Ther e is anterior and interbody fusion from C5 to C6. There is moderate degenerative disc narrowing at C3 -C4, C4-C5, and C6-C7. No prevertebral soft tissue swelling. Impression: No fracture or subluxation of the cervical spine. Chronic findings and post surgical change, as above. Reviewed, dictated and finalized at [facility]. Impression: No fracture or subluxation of the cervical spine. Chronic findings and post surgical change, as above.
[2024-01-10 08:22] VITALS: BP 125/71; PULSE 62; RESP 16; TEMP 36.7; O2SAT 100
[2024-01-10 08:31] VITALS: BP 110/66; O2SAT 99
[2024-01-10 08:45] VITALS: BP 114/70; O2SAT 98
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
[2024-01-10 10:30] VITALS: BP 118/70; PULSE 77; RESP 14; TEMP 36.7; O2SAT 100
== END 2024-01-10 10:34 | disposition home or self-care (01) ==
LOC: ANHED 09:42
PROVIDERS: Emergency Provider Family Medicine
DX: S16.1XXA Strain of muscle, fascia and tendon at neck level, initial encounter (principal); S40.011A Contusion of right shoulder, initial encounter; E78.5 Hyperlipidemia, unspecified; Z87.442 Personal history of urinary calculi; V89.2XXA Person injured in unspecified motor-vehicle accident, traffic, initial encounter
CPT/HCPCS: 70450; 72125; 73030; 99284